=== PATIENT | female | born 1990 | race African-American/Black ===

== ENCOUNTER 2017-01-10 21:38 | Emergency (ER) | payer OTHER ==
[~2017-01-10] VITALS: Ht 149.9 cm; Wt 111.2 kg
[2017-01-10 22:14] VITALS: BP 134/86; PULSE 100; RESP 18; TEMP 98.6
== END 2017-01-10 23:49 | disposition left against medical advice (07) ==
LOC: PHED 21:38
DX: R39.9 Unspecified symptoms and signs involving the genitourinary system (principal); Z53.21 Procedure and treatment not carried out due to patient leaving prior to being seen by health care provider
CPT/HCPCS: 99281